=== PATIENT | male | born 1965 | race Caucasian/White ===

== ENCOUNTER 2016-05-29 02:10 | Emergency (ER) | payer SELFPAY ==
[~2016-05-29] VITALS: Ht 172.7 cm; Wt 75.0 kg
[~2016-05-29 02:10] MED LIST: AUGM875T PO; BACT800T5 PO; CEPH500C3 PO; TRAM50 PO
[2016-05-29 02:12] VITALS: BP 140/80; PULSE 83; RESP 16; TEMP 97.7; O2SAT 96
[2016-05-29] MEDS ORDERED: PENI500T PO (03:33)
--- NOTE | 2016-05-29 03:35 | PD ---
HPI Chief Complaint: Oral / Dental Pain or Problem Time Seen by Provider: 03:28 Travel History International Travel<30 days: No Contact w/Intl Traveler<30days: No Traveled to known affect area: No History of Present Illness HPI 50-year-old male with dental pain. He reports that he has had dental pain for "years", worse over the past 2 days with associated soft tissue swelling of the left maxillary gingiva. Pain is throbbing and worse with chewing. No fevers. No other complaints. 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) Reported Meds & Prescriptions Reported Meds & Active Scripts Active Penicillin V Potassium 500 Mg Tab 500 Mg PO Q6H 10 Days Keflex (Cephalexin Monohydrate) 500 Mg Cap 500 Mg PO QID Bactrim DS (Sulfamethoxazole-Trimethoprim DS) 1 Tab Tab 1 Tab PO BID 10 Days Ultram (Tramadol HCl) 50 Mg Tab 50 Mg PO Q6H PRN FOR PAIN Augmentin 875 mg Tab (Amoxicillin & Pot Clavulanate 875 mg Tab) 875 Mg Tab 1 Tab PO BID Review of Systems General / Constitutional: No: Fever HENT: Positive: Dental Difficulties Physical Exam Narrative GENERAL: Well-developed well-nourished male in no acute distress SKIN: Warm and dry. HEAD: Atraumatic. Normocephalic. EYES: Pupils equal and round. No scleral icterus. No injection or drainage. ENT: No nasal bleeding or discharge. Mucous membranes pink and moist. Left maxillary gum line is erythematous, somewhat indurated and fluctuant. Tender to palpation. Some dental decay noted as well. No trismus or facial edema. NECK: Trachea midline. No JVD. Data Data Last Documented VS Vital Signs Date Time Temp Pulse Resp B/P Pulse Ox O2 Delivery O2 Flow Rate FiO2 05/29/16 02:12 97.7 83 16 140/80 96 Room Air Orders Penicillin V Potassium (Veetids) (05/29/16 03:45) MDM Medical Decision Making Medical Screen Exam Complete: Yes Emergency Medical Condition: Yes Medical Record Reviewed: Yes Differential Diagnosis Periodontal abscess, dental caries, pulpitis Narrative Course Examination is consistent with periodontal abscess. He is being discharged with penicillin, recommend outpatient follow-up with a dentist. Diagnosis Primary Impression: Acute periodontal abscess Additional Instructions: Antibiotic as prescribed. Warm salt water gargles several times a day. Follow up with a dentist. Return for any emergent medical conditions. Med/Other Pt SpecificInfo: Prescription(s) given Scripts Penicillin V Potassium 500 Mg [id number] Mg PO Q6H 10 Days Ref 0 Prov:Ady Guajardo MD 05/29/16 Disposition: 01 DISCHARGE HOME Condition: Stable Michael Rasmussen May 29, 2016 03:35
[2016-05-29] MEDS ORDERED: PENICILLIN V POTASSIUM 500 MG TAB PO ONE (03:45)
== END 2016-05-29 03:53 | disposition home or self-care (01) ==
LOC: NEPD 02:10
DX: K05.219 Aggressive periodontitis, localized, unspecified severity (principal)
CPT/HCPCS: 99282

== ENCOUNTER 2017-01-31 16:50 | Emergency (ER) | payer SELFPAY ==
[~2017-01-31 16:50] MED LIST changes: +PENI500T PO
[2017-01-31 16:51] VITALS: BP 148/80; PULSE 82; RESP 16; TEMP 97.8; O2SAT 97
--- NOTE | 2017-01-31 17:23 | PD ---
HPI Chief Complaint: Back/ Neck Pain or Injury Time Seen by Provider: 17:16 Travel History International Travel<30 days: No Contact w/Intl Traveler<30days: No Traveled to known affect area: No History of Present Illness HPI 51-year-old male presents emergency Department with complaint of mid back pain after slipping and falling landing on his back. He was on the roof of the car but did not fall off of the roof. Denies hitting his head or loss of consciousness. Denies neck pain. Denies encopresis, incontinence, saddle anesthesias. Denies IV drug use, cancer. Denies vomiting, abdominal pain, fevers. Denies paresthesias, loss of sensation, decreased range of motion, decreased strength to all extremities. Ambulatory in room with a normal gait. His taken ibuprofen for symptom management. Rates pain 7/10. Describes it as a throbbing sensation. Better with massage. Worse with movement. Does not have an established primary care provider. Denies significant past medical history. Has no other medical complaints. No other modifying factors or associated signs and symptoms. 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 HEAD: Atraumatic. Normocephalic. EYES: Pupils equal and round. No scleral icterus. No injection or drainage. ENT: Mucosa pink and moist. Airway patent. NECK: Trachea midline. CARDIOVASCULAR: Regular rate. RESPIRATORY: No accessory muscle use. GASTROINTESTINAL: Abdomen soft, non-tender, nondistended. Positive bowel sounds. No hepato-splenomegaly, or palpable masses. No guarding. MUSCULOSKELETAL: Bilateral lower extremities supple and non-tense with 2+ pedal pulses and sensory intact; with full range of motion and 5/5 strength. 2 + DTRs bilaterally. Active dorsiflexion and extension of bilateral feet. Bilateral straight leg raise is negative for low back pain. Ambulatory in room with normal gait. Sitting up in bed at 90. No obvious deformities. No clubbing. No cyanosis. No edema. BACK: No midline point tenderness on palpation of the thoracic or lumbar spine. Tenderness on palpation of bilateral musculature of the thoracic back. No obvious deformities. NEUROLOGICAL: Awake and alert. Oriented 3. No obvious cranial nerve deficits. Motor grossly within normal limits. Normal speech. Moves all extremities. 5/5 strength to all extremities. Sensory intact. PSYCHIATRIC: Appropriate mood and affect; insight and judgment normal. Data Data Last Documented VS Vital Signs Date Time Temp Pulse Resp B/P (MAP) Pulse Ox O2 Delivery O2 Flow Rate FiO2 01/31/17 16:51 97.8 82 16 148/80 (102) 97 Room Air Orders Orders Spine, Thoracic-Ap/Lat/Sw(3vw) (01/31/17 17:23) Ketorolac Inj (Toradol Inj) (01/31/17 17:30) Orphenadrine Inj (Norflex Inj) (01/31/17 17:30) Ct Thor Spine W/O Contrast (01/31/17 ) MDM Medical Decision Making Medical Screen Exam Complete: Yes Emergency Medical Condition: Yes Medical Record Reviewed: Yes Differential Diagnosis Fall, thoracic back strain, muscle spasms Narrative Course 51-year-old male with thoracic back injury after mechanical fall yesterday. Denies hitting his head or loss consciousness. Denies encopresis, incontinence , saddle anesthesias. Denies neck pain. Ambulatory in the room with normal gait. Denies IV drug use or cancer. Patient is afebrile and nontoxic- appearing. Denies fever, vomiting. He has no midline tenderness on palpation of the thoracic or lumbar spine. I will x-ray thoracic spine to rule out acute injury. Toradol and Norflex administered in the ER. 1822: Thoracic spine x-ray concludes: 50% compression deformities of at least 3 mid thoracic vertebral bodies without posterior displacement. I spoke with Dr. Ellison, my attending physician, and he recommended CT thoracic spine. CT thoracic spine ordered. 1899: Report given to Dakota Melo PA-C at change of shift. See his note for final patient disposition. Leticia Santamaria Jan 31, 2017 17:23
[2017-01-31] MEDS ORDERED: ORPHENADRINE INJ 60 MG/2 ML AMP IM ONE (17:30)
[2017-01-31] MEDS ORDERED: KETOROLAC TROMETHAMINE 60 MG/2 ML (IM) VIAL IM ONE (17:30)
--- NOTE | 2017-01-31 18:09 | RADRPT ---
EXAM DATE/TIME: 01/31/2017 17:52 [facility] COMPARISON: No previous studies available for comparison. INDICATIONS : Upper back pain post fall from roof. MEDICAL HISTORY : None. SURGICAL HISTORY : None. ENCOUNTER: Initial ACUITY: 1 day PAIN SCORE: 4/10 LOCATION: thoracic spine. FINDINGS: Abnormal and on the lateral view, there are 3 adjacent vertebral bodies demonstrating 50% compression deformities anteriorly with maintenance of the posterior vertebral body line and no evidence of spon dylolisthesis. There is mild accentuation of the upper kyphosis however. On the frontal view, compr ession deformities are seen of T6 and T7. Pedicles are seen at all levels. The paravertebral reflec tions are smooth. The costovertebral junctions appear intact on the frontal view. CONCLUSION: 50% compression deformities of at least 3 mid thoracic vertebral bodies without posterior displacemen tGuanaco Garrison MD on January 31, 2017 at 18:03 Board Certified Radiologist. This report was verified electronically.
[2017-01-31] MEDS ORDERED: CYCL10TA PO (19:18)
[2017-01-31] MEDS ORDERED: DICL75TA PO (19:18)
--- NOTE | 2017-01-31 19:31 | RADRPT ---
EXAM DATE/TIME: 01/31/2017 18:48 [facility] COMPARISON: SPINE THORACIC AP/LAT/SW (3VW), January 31, 2017, 17:52. INDICATIONS : Mid back pain from fall off car roof. RADIATION DOSE: 35.86 CTDIvol (mGy) MEDICAL HISTORY : Cardiovascular disease. Scoliosis. SURGICAL HISTORY : None. ENCOUNTER: Initial ACUITY: 2 days PAIN SCALE: 10/10 LOCATION: Bilateral mid back region. TECHNIQUE: Volumetric scanning of the thoracic spine was performed. Multiplanar reconstructions in the sagittal , coronal and oblique axial planes were performed. Using automated exposure control and adjustment o f the mA and/or kV according to patient size, radiation dose was kept as low as reasonably achievable to obtain optimal diagnostic quality images. DICOM format image data is available electronically f or review and comparison. FINDINGS: Conventional radiographs of the thoracic spine had demonstrated 50% compression deformities of 3 leve ls in the midthoracic spine without evidence of spondylolisthesis. On the CT scan, there is 50% loss of height of the 6th T6, T7, and T8 vertebral bodies creating an accentuation of the thoracic kyphos is. There is some mild nonbridging anterior paravertebral ossification present from T5 through T9. The posterior vertebral body line is in normal alignment. No fractures seen of the compressed verteb ral bodies. Posterior elements are in normal alignment. Nonbridging lateral paravertebral ossificat ion is present from T6 through T9. There is healed old fracture of the right costovertebral joint at T9 and there is a old healed fracture of the left posterior 11th rib. CONCLUSION: 1. No evidence of acute fracture. 2. Compression deformities of the T6, T7, and T8 vertebral bodies have associated degenerative change s suggesting that these represent old injuries. 3. Old healed fractures of the right T9 costovertebral junction and posterior left 11th rib. Anthony Garrison MD on January 31, 2017 at 19:23 Board Certified Radiologist. This report was verified electronically.
--- NOTE | 2017-01-31 19:44 | PD ---
Physical Exam Date Seen by Provider: Jan 31, 2017 Time Seen by Provider: 19:42 Data Data Last Documented VS Vital Signs Date Time Temp Pulse Resp B/P (MAP) Pulse Ox O2 Delivery O2 Flow Rate FiO2 01/31/17 16:51 97.8 82 16 148/80 (102) 97 Room Air Orders Orders Spine, Thoracic-Ap/Lat/Sw(3vw) (01/31/17 17:23) Ketorolac Inj (Toradol Inj) (01/31/17 17:30) Orphenadrine Inj (Norflex Inj) (01/31/17 17:30) Ct Thor Spine W/O Contrast (01/31/17 ) Ed Discharge Order (01/31/17 19:41) [facility] Medical Record Reviewed: Yes Supervised Visit with BETH: Yes Interpretation(s) CT of the thoracic spine is negative for acute fracture. He has old fractures. He also has old rib fracture. Differential Diagnosis . Narrative Course Patient's given Toradol and Norflex with good relief. CT of the thoracic spine reveals old compression fractures no acute injury. Diagnosis Primary Impression: back contusion Additional Impression: fall Patient Instructions: General Instructions Departure Forms: Work Release Special Instructions: No work 2-3 days. Additional Instruction: Rest. Ice for the next 3 days followed by heat . Flexeril and Voltaren. Follow-up with a primary care doctor in one week. Return to the ER for emergencies. Med/Other Pt SpecificInfo: Prescription(s) given Scripts Cyclobenzaprine (Flexeril) 10 Mg Tab 10 MG PO TID for Muscle Spasm, #30 TAB 0 Refills Prov: Seth Ellison MD 01/31/[address] (Diclofenac Sodium DR) 75 Mg Tabdr 75 MG PO BID, #30 TAB 0 Refills Prov: Seth Ellison MD 01/31/17 Disposition: 01 DISCHARGE HOME Condition: Stable Dakota Melo Jan 31, 2017 19:44
== END 2017-01-31 20:32 | disposition home or self-care (01) ==
LOC: NEPD 16:50
DX: S20.229A Contusion of unspecified back wall of thorax, initial encounter (principal); W01.0XXA Fall on same level from slipping, tripping and stumbling without subsequent striking against object, initial encounter
CPT/HCPCS: 72072; 72128; 96372; 99285; J1885; J2360

== ENCOUNTER 2017-02-15 18:31 | Emergency (ER) | payer SELFPAY ==
[~2017-02-15] VITALS: Ht 170.2 cm; Wt 75.0 kg
[~2017-02-15 18:31] MED LIST changes: -AUGM875T PO; -BACT800T5 PO; -CEPH500C3 PO; +CYCL10TA PO; +DICL75TA PO; -PENI500T PO; -TRAM50 PO
[2017-02-15 18:32] VITALS: BP 159/92; PULSE 78; RESP 16; TEMP 98.2; O2SAT 98
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
[2017-02-15 21:04] LABS: AUTOMATED NEUTROPHIL # 7.4 TH/MM3 (1.8-7.7); BASOPHIL % 0.5 % (0.0-2.0); EOSINOPHIL % 0.2 % (0.0-4.0); HEMATOCRIT 38.6 % (39.0-51.0); HEMOGLOBIN 13.1 GM/DL (13.0-17.0); LYMPH % 10.5 % (9.0-44.0); LYMPHOCYTE # 0.9 TH/MM3 (1.0-4.8); MEAN CELL VOLUME 84.9 FL (80.0-100.0); MEAN CORPUSCULAR HEMOGLOBIN 28.8 PG (27.0-34.0); MEAN PLATELET VOLUME 7.6 FL (7.0-11.0); MONO % 5.5 % (0.0-8.0); MONOCYTE # 0.5 TH/MM3 (0-0.9); NEUT % 83.3 % (16.0-70.0); PLATELET COUNT 308 TH/MM3 (150-450); RED BLOOD COUNT 4.54 MIL/MM3 (4.50-5.90); RED CELL DISTRIBUTION WIDTH 13.5 % (11.6-17.2); WHITE BLOOD COUNT 8.8 TH/MM3 (4.0-11.0)
[2017-02-15 21:15] LABS: INTERNATIONAL NORMALIZED RATIO 1.1 RATIO; PROTHROMBIN TIME - PATIENT 10.7 SEC (9.8-11.6)
[2017-02-15 21:38] LABS: ALBUMIN 3.4 GM/DL (3.4-5.0); AST (GOT) 66 U/L (15-37); BICARBONATE 28.2 MEQ/L (21.0-32.0); BLOOD UREA NITROGEN 10 MG/DL (7-18); CALCIUM 8.7 MG/DL (8.5-10.1); CHLORIDE 104 MEQ/L (98-107); CREATININE 0.82 MG/DL (0.60-1.30); GLOMERULAR FILTRATION RATE 99 ML/MIN (>89); GLUCOSE,RANDOM 104 MG/DL (74-106); SODIUM (NA) 140 MEQ/L (136-145)
[2017-02-15 21:39] LABS: BILIRUBIN, URINE NEG (NEG); BLOOD, URINE NEG (NEG); GLUCOSE,URINE NEG (NEG); KETONE, URINE NEG (NEG); NITRITE,URINE NEG (NEG); PH, URINE 6.5 (5.0-8.5); URINE COLOR LIGHT-YELLOW (YELLW/STRAW); URINE LEUKOCYTE ESTERASE NEG (NEG)
[2017-02-15 21:44] LABS: ALKALINE PHOSPHATASE 70 U/L (45-117); ALT (GPT) 51 U/L (12-78); TOTAL BILIRUBIN ADULT 0.5 MG/DL (0.2-1.0); TOTAL PROTEIN 7.6 GM/DL (6.4-8.2)
[2017-02-15] MEDS ORDERED: CEPH-460 PO (22:08)
[2017-02-15 22:51] VITALS: BP 133/68; PULSE 70; RESP 20; O2SAT 97
[2017-02-16] MEDS ORDERED: IBUP1TAB7 PO (05:14)
[2017-02-16] MEDS ORDERED: NORC5TAB PO (05:14)
== END 2017-02-15 23:24 | disposition home or self-care (01) ==
LOC: NEPC 18:31
DX: S60.222A Contusion of left hand, initial encounter (principal); S20.229A Contusion of unspecified back wall of thorax, initial encounter; S00.93XA Contusion of unspecified part of head, initial encounter; S02.80XA Fracture of other specified skull and facial bones, unspecified side, initial encounter for closed fracture; S02.2XXA Fracture of nasal bones, initial encounter for closed fracture; F11.90 Opioid use, unspecified, uncomplicated; F13.90 Sedative, hypnotic, or anxiolytic use, unspecified, uncomplicated; F12.90 Cannabis use, unspecified, uncomplicated; Y04.2XXA Assault by strike against or bumped into by another person, initial encounter
CPT/HCPCS: 70450; 70486; 71045; 72040; 72072; 72100; 73130; 80053; 80307; 81001; 85025; 85610; 85730; 96365; 99285; J0690

== ENCOUNTER 2017-02-16 03:48 | Emergency (ER) | payer SELFPAY ==
[~2017-02-16] VITALS: Ht 170.2 cm; Wt 70.5 kg
[~2017-02-16 03:48] MED LIST changes: +CEPH-460 PO; -CYCL10TA PO; -DICL75TA PO
[2017-02-16 03:50] VITALS: BP 138/90; PULSE 75; RESP 18; TEMP 98.4; O2SAT 97
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
[2017-02-16] MEDS ORDERED: SODIUM CHLOR 0.9% 1000 ML INJ 1,000 ML IV ONE (04:15)
[2017-02-16] MEDS ORDERED: DEXAMETHASONE SOD PHOS 4 MG/ML VIAL IV PUSH ONE (04:15)
[2017-02-16] MEDS ORDERED: ONDANSETRON HCL 4 MG/2 ML VIAL IV PUSH ONE (04:15)
[2017-02-16] MEDS ORDERED: MORPHINE SULFATE 4 MG/ML INJ IV PUSH ONE (04:15)
[2017-02-16] MEDS ORDERED: NORC5TAB PO (05:14)
[2017-02-16] MEDS ORDERED: IBUP1TAB7 PO (05:14)
[2017-02-16] MEDS ORDERED: MORPHINE SULFATE 2 MG/ML INJ IV PUSH ONE (05:15)
== END 2017-02-16 09:05 | disposition home or self-care (01) ==
LOC: NEPD 03:48
DX: R52 Pain, unspecified (principal); S02.92XD Unspecified fracture of facial bones, subsequent encounter for fracture with routine healing; S00.83XD Contusion of other part of head, subsequent encounter; S40.0 Contusion of shoulder and upper arm; S80.10XD Contusion of unspecified lower leg, subsequent encounter; Y04.8XXD Assault by other bodily force, subsequent encounter
CPT/HCPCS: 96361; 96374; 96375; 96376; 99284; J1100; J2270; J2405; J7030

== ENCOUNTER 2017-02-16 20:34 | Emergency (ER) | payer SELFPAY ==
[~2017-02-16] VITALS: Ht 170.2 cm; Wt 70.0 kg
[~2017-02-16 20:34] MED LIST changes: +CYCL10TA PO; +DICL75TA PO; +IBUP1TAB7 PO; +NORC5TAB PO
[2017-02-16 20:35] VITALS: BP 168/100; PULSE 97; RESP 18; TEMP 98; O2SAT 97
[2017-02-16] MEDS ORDERED: MORPHINE SULFATE 2 MG/ML INJ IV PUSH ONE ×2 (23:30)
[2017-02-16 23:31] LABS: AUTOMATED NEUTROPHIL # 11.8 TH/MM3 (1.8-7.7); BASOPHIL % 0.3 % (0.0-2.0); EOSINOPHIL % 0.1 % (0.0-4.0); HEMATOCRIT 38.9 % (39.0-51.0); HEMOGLOBIN 13.3 GM/DL (13.0-17.0); LYMPH % 7.9 % (9.0-44.0); LYMPHOCYTE # 1.1 TH/MM3 (1.0-4.8); MEAN CELL VOLUME 85.8 FL (80.0-100.0); MEAN CORPUSCULAR HEMOGLOBIN 29.4 PG (27.0-34.0); MEAN CORPUSCULAR HGB CONC 34.2 % (32.0-36.0); MEAN PLATELET VOLUME 8.2 FL (7.0-11.0); MONO % 4.4 % (0.0-8.0); MONOCYTE # 0.6 TH/MM3 (0-0.9); NEUT % 87.3 % (16.0-70.0); PLATELET COUNT 323 TH/MM3 (150-450); RED BLOOD COUNT 4.53 MIL/MM3 (4.50-5.90); RED CELL DISTRIBUTION WIDTH 13.6 % (11.6-17.2); WHITE BLOOD COUNT 13.6 TH/MM3 (4.0-11.0)
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
[2017-02-16 23:49] LABS: ALKALINE PHOSPHATASE 66 U/L (45-117); TOTAL BILIRUBIN ADULT 0.7 MG/DL (0.2-1.0); TOTAL PROTEIN 8.1 GM/DL (6.4-8.2)
[2017-02-16 23:53] LABS: ALBUMIN 3.5 GM/DL (3.4-5.0); ALT (GPT) 54 U/L (12-78); AST (GOT) 79 U/L (15-37); BICARBONATE 25.5 MEQ/L (21.0-32.0); BLOOD UREA NITROGEN 13 MG/DL (7-18); CALCIUM 8.8 MG/DL (8.5-10.1); CHLORIDE 105 MEQ/L (98-107); CREATININE 0.88 MG/DL (0.60-1.30); GLOMERULAR FILTRATION RATE 91 ML/MIN (>89); GLUCOSE,RANDOM 136 MG/DL (74-106); SODIUM (NA) 137 MEQ/L (136-145)
[2017-02-17] MEDS ORDERED: IOHEXOL 350 MG/ML 10 ML VIAL (for RAD DIAG) IVCONTRAST ONE (00:26)
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
== END 2017-02-17 01:24 | disposition home or self-care (01) ==
LOC: NEPD 20:34
DX: S22.41XA Multiple fractures of ribs, right side, initial encounter for closed fracture (principal); B19.20 Unspecified viral hepatitis C without hepatic coma; Y04.2XXA Assault by strike against or bumped into by another person, initial encounter
CPT/HCPCS: 71260; 74177; 80053; 80307; 85025; 99285; Q9967

== ENCOUNTER 2017-02-17 22:40 | Emergency (ER) | payer SELFPAY ==
[~2017-02-17] VITALS: Ht 167.6 cm; Wt 75.0 kg
[2017-02-17 22:42] VITALS: BP 124/84; PULSE 98; RESP 20; TEMP 98.8; O2SAT 97
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
[2017-02-18] MEDS ORDERED: KETOROLAC TROMETHAMINE 60 MG/2 ML (IM) VIAL IM ONE (00:15)
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
== END 2017-02-18 02:00 | disposition home or self-care (01) ==
LOC: NEPD 22:40
DX: R07.81 Pleurodynia (principal); S22.41XD Multiple fractures of ribs, right side, subsequent encounter for fracture with routine healing; Y09 Assault by unspecified means
CPT/HCPCS: 71045; 94150; 96372; 99284; J1885